=== PATIENT | male | born 1955 | race Caucasian/White ===

== ENCOUNTER 2018-07-03 19:21 | Inpatient (IN) ==
[2018-07-03] MEDS ORDERED: PANTOPRAZOLE 40 MG VIAL IV STA (20:03)
[2018-07-03] MEDS ORDERED: METOCLOPRAMIDE 10 MG/2 ML VIAL IV STA (20:03)
[2018-07-03 20:24] LABS: Basophils # 0.1 10*3/uL (0.0-0.2); Basophils % 0.3 % (0.0-0.8); Eosinophils # 0.6 10*3/uL (0.0-0.87); Eosinophils % 3.8 % (0.00-10.9); Hematocrit 42.5 VOL% (42.0-52.0); Hemoglobin 14.8 GM/DL (14.0-18.0); Immature Granulocytes % 0.4 %; Immature Granulocytes Absolute 0.06 #; Lymphocytes # 2.3 10*3/uL (1.4-4.0); Lymphocytes % 14.1 % (21.2-54.2); Mean Corpuscular HGB Conc 34.8 GM/DL (32-36); Mean Corpuscular Hemoglobin 33 PG (27-34); Mean Corpuscular Volume 95.1 FL (87-102); Mean Platelet Volume 9.5 FL (9.6-12.0); Monocytes # 1.1 10*3/uL (0.11-0.8); Monocytes % 6.7 % (1.7-12.7); Neutrophils # 12.3 10*3/uL (1.4-7.4); Neutrophils % 74.7 % (38.7-73.9); Platelet Count 246 T/CUMM (130-400); Red Blood Count 4.47 MC/CUMM (3.8-5.5); Red Cell Distribution Width 12.8 % (9.3-17.3); White Blood Count 16.4 T/CUMM (4-12)
[2018-07-03 20:35] LABS: PT Patient Result 10.7 SECS; Partial Thromboplastin Time 21.5 SECS (0-40)
[2018-07-03 20:44] LABS: Alanine Aminotransferase 29 U/L (16-61); Alkaline Phosphatase 50 U/L (45-117); Amylase 75 U/L (25-115); Aspartate Amino Transferase 16 U/L (0-37); Blood Urea Nitrogen 17 MG/DL (7-18); Calcium 9.3 MG/DL (8.5-10.1); Glucose 161 MG/DL (74-106); Potassium 3.8 MMOL/L (3.5-5.1); Sodium 136 MMOL/L (136-145); Troponin I < 0.015 NG/ML (0.00-0.045)
[2018-07-03] MEDS ORDERED: SODIUM CHLORIDE 0.9% 1,000 ML IV STA (21:25)
[2018-07-03] MEDS ORDERED: LEVOFLOXACIN INJ 750 MG in PREMIX 1 EACH IV STA (21:30)
[2018-07-03] MEDS ORDERED: CLINDAMYCIN INJ 900 MG in PREMIX 1 EACH IV STA (21:30)
[2018-07-03 21:34] LABS: Apearance,Urine CLEAR (Clear); Bacteria,Urine Occasional /HPF (Few); Bilirubin,Urine Negative (Negative); Blood, Urine Negative (Negative); Glucose,Urine (UA) 50 mg/dL (Negative); Hyaline Casts,Urine 1 /LPF (0-3); Ketones,Urine Negative (Negative); Mucus,Urine Occasional /LPF (Occasional); Nitrite,Urine Negative (Negative); Protein,Urine Negative; RBC,Urine 4 /HPF (0-4); Squamous Epithelial Cell,Urine Occasional /HPF (0-10); Urine Color Yellow (Yellow); Urine Urobilinogen < 2.0 EU/DL (0.2-1.0); WBC,Urine 3 /HPF (0-6)
[2018-07-03] MEDS ORDERED: fentaNYL 100 MCG/2 ML VIAL IV STA (21:37)
[2018-07-03] MEDS ORDERED: ONDANSETRON ODT 4 MG TABLET PO STA (21:37)
[2018-07-03] MEDS ORDERED: HYDROmorphone 2 MG/1 ML VIAL IV PRN (21:44)
[2018-07-03] MEDS ORDERED: hydrALAZINE 20 MG/1 ML VIAL IV PRN (21:44)
[2018-07-03] MEDS ORDERED: ONDANSETRON 4 MG/2 ML VIAL IV PRN (21:44)
[2018-07-03] MEDS ORDERED: LEVOFLOXACIN INJ 750 MG in PREMIX 1 EACH IV SCH (23:00)
[2018-07-03] MEDS: LACTATED RINGERS 1,000 ML IV SCH (23:00)
[2018-07-04] MEDS ORDERED: CLINDAMYCIN INJ 900 MG in PREMIX 1 EACH IV SCH (06:00)
[2018-07-04] MEDS ORDERED: LIDOCAINE 1%/EPI INJ 20 ML VIAL ONE (06:20)
[2018-07-04] MEDS ORDERED: TISSUE ADHESIVE 1 EACH APPLICATOR TOP ONE (06:48)
[2018-07-04] MEDS: LACTATED RINGERS 1,000 ML IV SCH ×2 (07:00→08:00)
[2018-07-04] MEDS ORDERED: DULoxetine 30 MG CAPSULE PO SCH (09:00)
[2018-07-04] MEDS ORDERED: predniSONE 5 MG TABLET PO SCH (09:00)
[2018-07-04] MEDS ORDERED: ENOXAPARIN 40 MG/0.4 ML SYRINGE SUBCUT SCH (09:00)
[2018-07-04] MEDS ORDERED: PROPOFOL 200 MG/20 ML VIAL IV ONE (09:30)
[2018-07-04] MEDS ORDERED: DESFLURANE 1 UNIT/15 MINUTE INH ONE (09:30)
[2018-07-04] MEDS ORDERED: MELOXICAM 7.5 MG TABLET PO SCH ×2 (09:30→21:00)
[2018-07-04] MEDS ORDERED: fentaNYL 100 MCG/2 ML VIAL ONE (09:30)
[2018-07-04] MEDS ORDERED: LOSARTAN 50 MG TABLET PO SCH (09:30)
[2018-07-04] MEDS ORDERED: PHENYLEPHRINE 1 MG/10 ML SYRINGE IV ONE (09:31)
[2018-07-04] MEDS ORDERED: MIDAZOLAM 2 MG/2 ML VIAL ONE (09:31)
[2018-07-04] MEDS ORDERED: ONDANSETRON 4 MG/2 ML VIAL ONE (09:31)
[2018-07-04] MEDS ORDERED: KETOROLAC 30 MG/1 ML VIAL ONE (09:31)
[2018-07-04] MEDS ORDERED: HYDROCORTISONE 100 MG VIAL ONE (09:31)
[2018-07-04] MEDS ORDERED: GLYCOPYRROLATE 0.4 MG/2 ML VIAL ONE (09:31)
[2018-07-04] MEDS ORDERED: LACTATED RINGERS 1,000 ML IV ONE (09:32)
[2018-07-04] MEDS ORDERED: SUCCINYLCHOLINE 200 MG/10 ML VIAL ONE (09:32)
[2018-07-04] MEDS ORDERED: NEOSTIGMINE 10 MG/10 ML VIAL ONE (09:32)
[2018-07-04] MEDS ORDERED: ROCURONIUM 100 MG/10 ML VIAL IV ONE (09:32)
[2018-07-04 12:55] VITALS: BP 123/80
[2018-07-04] MEDS ORDERED: TRAVOPROST 0.004% OPH SOLN 2.5 ML BOTTLE BOTH EYES SCH (21:00)
[2018-07-04] MEDS ORDERED: SIMVASTATIN 20 MG TABLET PO SCH (21:00)
== END 2018-07-04 13:00 | disposition home or self-care (01) | DRG 342 ==
LOC: N.ED 19:21 → N.EDINP 21:43 → N.3E 22:13
PROVIDERS: ADMIT Surgery; ATTEND Surgery